=== PATIENT | female | born 1930 | race Two or more races ===

== ENCOUNTER → 2016-11-16 | Outpatient (CLI) | payer MEDICARE, MEDICAID ==
[~2016-11-16] MED LIST: 3N1 COMMODE MC; ASPI-781 PO; BEN25 PO; CARV6.2545 PO; CIPR500T4 PO; DOCU-144 PO; ESOM40CA PO; NA P133E3 PR; OXYC-481 PO; RANI150T9 PO; SIMV20TA PO; TRAM50TA2 PO; WALK1EAC23 MC; ZOF4I IV
--- NOTE | 2016-11-16 15:10 | RADRPT ---
PROCEDURE: XR Pelvis and Hips. CLINICAL INDICATION: Pelvic pain. Bilateral hip pain. TECHNIQUE: Five views. Frontal pelvis. Frontal and lateral right hip. Frontal and lateral left hip. COMPARISON: 10/05/2015. FINDINGS: There is a left total hip replacement. There is no evidence of loosening of the prosthesis. There is moderate right hip osteoarthrosis. This is associated with joint space narrowing, subchondr al sclerosis, subchondral cyst formation and osteophytosis. There is normal osseous mineralization. No fractures or osseous lesions are identified. The soft tissues are unremarkable. There are lumbar laminectomies and posterior fixation with pedicle screws and connecting rods. IMPRESSION: 1. Left hip total arthroplasty. 2. Moderate degenerative changes of the right hip. 3. Prior lower lumbar spine surgery. 4. No change from 10/04/2016. RPTAT: QQ .Javier Guillen MD, MD Date Time Electronically viewed and signed by .Javier Guillen MD, on 11/16/2016 15:10 .R/
== END | disposition home or self-care (01) ==
LOC: HKI 09:37
PROVIDERS: ATTEND Orthopaedic Surgery
DX: M25.552 Pain in left hip (principal); M51.36 Other intervertebral disc degeneration, lumbar region; M54.16 Radiculopathy, lumbar region; M06.9 Rheumatoid arthritis, unspecified; Z96.642 Presence of left artificial hip joint; Z96.653 Presence of artificial knee joint, bilateral
CPT/HCPCS: 73523; G0463